=== PATIENT | female | born 1980 | race Caucasian/White ===

== ENCOUNTER 2019-04-20 06:58 | Day surgery (SDC) | payer BC ==
[~2019-04-20 06:58] MED LIST: Lidocaine 1%/Sod Bicarbonate in NS 8.4% 1 ML Syringe IDERM PRN; Sodium Chloride 0.9% 10 ML Syringe FLUSH PRN
[2019-04-20] MEDS ORDERED: fentaNYL 250 MCG/5 ML SDV ONE (07:12)
[2019-04-20] MEDS ORDERED: Propofol 200 MG/20 ML SDV ONE (07:12)
[2019-04-20] MEDS ORDERED: Ondansetron 4 MG/2 ML SDV ONE (07:12)
[2019-04-20] MEDS ORDERED: Lidocaine 1% 4 ML ONE ×2 (07:12→07:13)
[2019-04-20] MEDS ORDERED: Midazolam 1 MG/ML 2 ML SDV ONE (07:12)
[2019-04-20] MEDS ORDERED: ceFAZolin 1 GM Vial ONE (07:12)
[2019-04-20] MEDS ORDERED: Lactated Ringers 1,000 ML ONE (07:12)
[2019-04-20] MEDS ORDERED: Ketorolac 30 MG/ML SDV ONE (07:13)
[2019-04-20] MEDS ORDERED: Rocuronium 100 MG/10 ML MDV ONE (07:13)
[2019-04-20] MEDS ORDERED: Dexamethasone 4 MG/ML 5 ML MDV ONE (07:13)
[2019-04-20] MEDS: Lactated Ringers 1,000 ML IV SCH ×3 (07:27→13:57)
[2019-04-20] MEDS ORDERED: Sodium Chloride 0.9% 50 ML SDV ONE (07:28)
[2019-04-20] MEDS ORDERED: Lidocaine 1% with EPINEPHrine 1:100,000 20 ML MDV ONE (07:28)
[2019-04-20] MEDS ORDERED: Bupivacaine 0.5% 30 ML SDV ONE (07:28)
[2019-04-20] MEDS ORDERED: fentaNYL 100 MCG/2 ML SDV IVPUSH PRN (08:53)
[2019-04-20] MEDS ORDERED: Ondansetron 4 MG/2 ML SDV IVPUSH PRN (08:53)
[2019-04-20] MEDS ORDERED: HYDROmorphone 0.5 MG/0.5 ML Syringe IVPUSH PRN (08:53)
--- NOTE | 2019-04-20 08:53 | PCM.PREANE ---
Preanesthetic Assessment - Procedure Proposed Procedure: Laparoscopic Assisted Vaginal Hysterectomy - Anesthesia/Transfusion/Family Hx Anesthesia History: Prior Anesthesia Without Reaction Family History of Anesthesia Reaction: No - Review of Systems General: No Symptoms Pulmonary: No Symptoms Cardiovascular: No Symptoms Gastrointestinal: No Symptoms Neurological: No Symptoms Other: Reports: Anxiety - Physical Assessment NPO Status Date: 04/19/19 NPO Status Time: 19:00 Vital Signs: Last Vital Signs Temp 37.2 C 04/20/19 07:15 Pulse 71 04/20/19 07:15 Resp 16 04/20/19 07:15 BP 100/61 04/20/19 07:15 Pulse Ox 99 04/20/19 07:15 Height: 1.75 m Weight: 57.606 kg ASA Class: 1 Mental Status: Alert & Oriented x3 Airway Class: Mallampati = 1 Dentition: Reports: Normal Dentition (Small chipped/uneven surface noted to both front incisors. ) Thyro-Mental Finger Breadths: 3 Mouth Opening Finger Breadths: 3 ROM/Head Extension: Full Lungs: Clear to Auscultation, Normal Respiratory Effort Cardiovascular: Regular Rate, Regular Rhythm - Lab Values: Laboratory Last Values Urine Color Yellow (Yellow) 04/20/19 07:08 Urine Appearance Slt cloudy (Clear) H 04/20/19 07:08 Urine pH 7.0 (5.0-8.0) 04/20/19 07:08 Ur Specific [employer] 1.025 (1.005-1.030) 04/20/19 07:08 Urine Protein Negative (Negative) 04/20/19 07:08 Urine Glucose (UA) Negative (Negative) 04/20/19 07:08 Urine Ketones Negative (Negative) 04/20/19 07:08 Urine Occult Blood Negative (Negative) 04/20/19 07:08 Urine Nitrite Negative (Negative) 04/20/19 07:08 Urine Bilirubin Negative (Negative) 04/20/19 07:08 Urine Urobilinogen 1.0 (0.2-1.0) 04/20/19 07:08 Ur Leukocyte Esterase Trace (Negative) H 04/20/19 07:08 Urine RBC 0-5 /hpf (0-5) 04/20/19 07:08 Urine WBC 5-10 /hpf (0-5) H 04/20/19 07:08 Ur Squamous Epith Cells 5-10 /hpf (0-5) H 04/20/19 07:08 Urine Bacteria Moderate /hpf (FEW) H 04/20/19 07:08 Hyaline Casts 0-5 /lpf (0-5) 04/20/19 07:08 Urine Mucus Moderate /hpf (FEW) H 04/20/19 07:08 Urine HCG, Qual Negative (NEGATIVE) 04/20/19 07:08 - Allergies Allergies/Adverse Reactions: Allergies Allergy/AdvReac Type Severity Reaction Status Date / Time No Known Allergies Allergy Verified 04/20/19 07:49 - Anesthesia Plan Pre-Op Medication Ordered: Anxiolytic - Acknowledgements Anesthesia Type Planned: General Anesthesia Pt an Appropriate Candidate for the Planned Anesthesia: Yes Alternatives and Risks of Anesthesia Discussed w Pt/Guardian: Yes Pt/Guardian Understands and Agrees with Anesthesia Plan: Yes PreAnesthesia Questionnaire - Past Health History Medical/Surgical History: Denies Medical/Surgical History HEENT History: Reports: Impaired Vision Cardiovascular History: Reports: None Respiratory History: Reports: None Gastrointestinal History: Reports: None Genitourinary History: Reports: Other (See Below) Other Genitourinary History: urinary frequency 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: , Other (See Below) Other OB/BYN History: essure coils, irregular menses, pelvic pain, dyspareunia Musculoskeletal History: Reports: None Neurological History: Reports: None Psychiatric History: Reports: Anxiety Endocrine/Metabolic History: Reports: None Hematologic History: Reports: None Immunologic History: Reports: None Oncologic (Cancer) History: Reports: None Dermatologic History: Reports: Other (See Below) Other Dermatologic History: dermoid cyst, cystic acne - Past Surgical History Head Surgeries/Procedures: Reports: None HEENT Surgical History: Reports: None Cardiovascular Surgical History: Reports: None Respiratory Surgical History: Reports: None GI Surgical History: Reports: None Female Surgical History: Reports: Breast Implant Male Surgical History: Reports: None Endocrine Surgical History: Reports: None Neurological Surgical History: Reports: None Musculoskeletal Surgical History: Reports: None Oncologic Surgical History: Reports: None - SUBSTANCE USE Smoking Status *Q: Never Smoker Recreational Drug Use History: No - HOME MEDS Home Medications: Home Meds Escitalopram [Lexapro] 20 mg PO BEDTIME 04/19/19 [History] Spironolactone 50 mg PO BID 04/19/19 [History] - CURRENT (IN HOUSE) MEDS Current Meds: Current Medications Lactated Ringer's (Ringers, Lactated) 1,000 mls @ 125 mls/hr IV ASDIRECTED DIAN Stop: 04/20/19 23:00 Last Admin: 04/20/19 07:27 Dose: 125 mls/hr Lidocaine/Sodium Bicarbonate (Buffered Lidocaine 1% In Ns 8.4%) 0.25 ml IDERM ONETIME PRN PRN Reason: Prior to IV Start Stop: 04/20/19 18:00 Last Admin: 04/20/19 07:27 Dose: 0.25 ml Sodium Chloride (Saline Flush) 10 ml FLUSH ASDIRECTED PRN PRN Reason: Keep Vein Open Stop: 04/20/19 18:00 Discontinued Medications Bupivacaine HCl (Marcaine 0.5%) Confirm Administered Dose 30 ml .ROUTE .STK-MED ONE Stop: 04/20/19 07:29 Cefazolin Sodium (Ancef) Confirm Administered Dose 2 gm .ROUTE .STK-MED ONE Stop: 04/20/19 07:13 Dexamethasone (Dexamethasone) Confirm Administered Dose 20 mg .ROUTE .STK-MED ONE Stop: 04/20/19 07:14 Fentanyl (Sublimaze) Confirm Administered Dose 250 mcg .ROUTE .STK-MED ONE Stop: 04/20/19 07:13 Glycopyrrolate () Confirm Administered Dose 1 mg .ROUTE .STK-MED ONE Stop: 04/20/19 08:35 Lidocaine HCl (Xylocaine-Mpf 1%) Confirm Administered Dose 4 mls @ as directed .ROUTE .STK-MED ONE Stop: 04/20/19 07:13 Lactated Ringer's (Ringers, Lactated) Confirm Administered Dose 1,000 mls @ as directed .ROUTE .STK-MED ONE Stop: 04/20/19 07:13 Lidocaine HCl (Xylocaine-Mpf 1%) Confirm Administered Dose 4 mls @ as directed .ROUTE .STK-MED ONE Stop: 04/20/19 07:14 Ketorolac Tromethamine (Toradol) Confirm Administered Dose 30 mg .ROUTE .STK- MED ONE Stop: 04/20/19 07:14 Lidocaine/Epinephrine (Xylocaine 1% With Epinephrine 1:100,000) Confirm Administered Dose 20 ml .ROUTE .STK-MED ONE Stop: 04/20/19 07:29 Midazolam HCl (Versed 1 Mg/Ml) Confirm Administered Dose 2 mg .ROUTE .STK-MED ONE Stop: 04/20/19 07:13 Ondansetron HCl (Zofran) Confirm Administered Dose 4 mg .ROUTE .STK-MED ONE Stop: 04/20/19 07:13 Propofol (Diprivan 20 Ml) Confirm Administered Dose 400 mg .ROUTE .STK-MED ONE Stop: 04/20/19 07:13 Rocuronium [place] (Zemuron) Confirm Administered Dose 100 mg .ROUTE .STK-MED ONE Stop: 04/20/19 07:14 Sodium Chloride (Normal Saline) Confirm Administered Dose 50 ml .ROUTE .STK-MED ONE Stop: 04/20/19 07:29
--- NOTE | 2019-04-20 10:03 | PCM.POSTAN ---
POST ANESTHESIA ASSESSMENT - MENTAL STATUS Mental Status: Alert, Oriented - VITAL SIGNS Vital Signs: Last Vital Signs Temp 37.2 C 04/20/19 07:15 Pulse 71 04/20/19 07:15 Resp 16 04/20/19 07:15 BP 100/61 04/20/19 07:15 Pulse Ox 99 04/20/19 07:15 - RESPIRATORY Respiratory Status: Respiratory Rate WNL, Airway Patent, O2 Saturation Stable, Supplemental Oxygen - CARDIOVASCULAR CV Status: Pulse Rate WNL, Blood Pressure Stable - GASTROINTESTINAL GI Status: No Symptoms - PAIN Pain Score: 0 - POST OP HYDRATION Hydration Status: Adequate & Stable
--- NOTE | 2019-04-20 10:07 | PCM.OPNOTE ---
- General Post-Op/Procedure Note Date of Surgery/Procedure: 04/20/19 Operative Procedure(s): Laparoscopic-assisted vaginal hysterectomy with transvaginal tape mid urethral sling and cystoscopy Findings: Grossly normal-appearing uterus with surgically resected fallopian tubes bilaterally. Grossly normal-appearing ovaries bilaterally. Unable to visualize the appendix due to location. Grossly normal-appearing visualized portions of the intestines. Liver with small cyst on left lobe inferior edge measuring approximately 0.5 cm. Pre Op Diagnosis: Abnormal uterine bleeding with menorrhagia with irregular cycle, dysmenorrhea and stress urinary incontinence Post-Op Diagnosis: Same Anesthesia Technique: General ET Tube Primary Surgeon: Geovanny Clements Anesthesia Provider: Susana Forrest Petroleum Supply Specialist: [place] Petroleum Supply Specialist: Huong Matias ([place] student) Reason Petroleum Supply Specialist Was Necessary: Patient safety and reduction of morbidity and mortality Role of Petroleum Supply Specialist: Use of laparoscopic instruments for the laparoscopic portion of the case and retraction for visualization Pathology: Uterus and cervix Fluid Replacement, Intraop: 1,700 Output, Urine Amount: 50 EBL in mLs: 25 Complications: None Condition: Good Free Text/Narrative:: The patient was seen in the preoperative holding area and risks, benefits, indications, and alternatives of the procedure were reviewed with the patient and she desired to proceed with a laparoscopic assisted vaginal hysterectomy, bilateral salpingectomy, possible unilateral or bilateral salpingo-oophorectomy , transvaginal mid-urethral sling, possible anterior and posterior repair and possible total abdominal hysterectomy. Consents were reviewed. The patient was taken back to the OR and given general anesthesia with an endotracheal tube which was placed without difficulty. She was placed in dorsal lithotomy position using Yellofin stirrups. She was prepped and draped in normal sterile fashion. A Bond catheter was placed without difficulty. Attention was then turned to her umbilicus where a previous laparoscopic scar was visualized. This was injected with 0.5% Marcaine and a 5 mm stab incision was made with a scalpel and a Veress needle was then inserted through the incision. The gas was turned on, with an opening pressure of 2 mmHg. Pneumoperitoneum was continued until 15 mmHg pressure. A 5 mm trocar was then inserted under direct visualization through the incision without difficulty. Attention was then turned to the patient's right lower quadrant where an avascular space approximately fdc between the ASIS and the umbilicus was identified. Local anesthetic was injected and a 5 mm incision was made with a scalpel. A 5 mm trocar was then inserted under direct visualization of the laparoscope. Attention was then turned to the left lower quadrant, where again an avascular portion of the abdominal wall was identified approximately fdc between the ASIS and the umbilicus. Local anesthetic was injected and a scalpel was used to make a 5 mm incision. A 5 mm trocar was inserted under direct visualization with the laparoscope. Attention was then turned to the pelvis where the uterus was visualized and noted be normal in appearance with surgically absent bilateral fallopian tubes and normal-appearing bilateral ovaries. The atraumatic grasper was then removed from the right lower trocar and a Enseal vessel sealing device was introduced and was used to transect the right round ligament. The utero-ovarian ligament was then transected using the Enseal vessel sealing device. The right side of the uterus and broad ligament were then transected using the Enseal vessel sealing device until the level of the uterovesical peritoneal reflection. A bladder flap was created using the Enseal vessel sealing device. This was repeated on the patient's left side. The left round ligament and utero ovarian ligament was transected using Enseal vessel sealing device and the broad ligament was transected to the level of the uterovesical peritoneal reflection. The pelvis was then inspected for hemostasis at this time and hemostasis was noted. All instruments were removed from the abdomen. Attention was then turned to the patient's perineum where a weighted speculum was placed into the vagina and a Samia retractor was used to visualize the cervix. The cervix was grasped with a double-tooth tenaculum. The cervical reflection point was then injected circumferentially with 0.25% lidocaine with epinephrine. The cervix was then circumferentially incised with a scalpel. The bladder was then dissected off the pubovesical cervical fascia anteriorly with Metzenbaum scissors and the anterior cul-de-sac was entered sharply. The same procedure was performed posteriorly and the posterior cul-de-sac was entered sharply without difficulty using Metzenbaum scissors. At this point, an Enseal vessel sealing device was placed over the uterosacral ligaments on the patient' s left side. These were cauterized and ligated with the device. This was repeated on the patient's right side. Hemostasis was assured. The cardinal ligaments were then clamped on both sides using the Enseal vessel sealing device , cauterized and transected with the device. The uterine artery on the patient' s right side side and the remainder of the broad ligament were then serially clamped with the Enseal vessel sealing device, cauterized and transected with the device. Excellent hemostasis was noted. The cervix and uterus was able to be delivered at this time. The posterior vaginal cuff was closed with running locked sutures of 0 Monocryl. The vaginal cuff was then closed in a horizontal fashion using running locked sutures with 0 Monocryl suture. All instruments were removed from the vagina. Attention was then turned to the abdomen where a laparoscope was inserted and was used to check for hemostasis. Hemostasis was noted at this time. The gas was then evacuated from the peritoneum and trocars removed. These were closed using 4-0 Monocryl suture and Dermabond. Attention was then turned to the pelvis for the mid urethral sling portion of the case. An Allis clamp was placed approximately 2 cm below the urethral opening. A second Allis clamp was placed 2 cm below the first Allis clamp. The vaginal mucosa was then injected with 0.25% lidocaine with epinephrine. A scalpel was used to make a midline incision through the vaginal mucosa. Rosado scissors were used to dissect the vaginal mucosa from the underlying tissue on the patient's right side. This was carried out to the pubic rami. This was repeated on the left side and completed without difficulty. Attention was then turned to the patient's mons and the skin was injected with 0.25% lidocaine with epinephrine in the bilateral sides approximately 2 cm from midline. A stab incision was made with a scalpel on the bilateral sides without complications. The urethral sling hook was then used on the patient's left side and placed through the stab incision and with a finger in the vagina behind the pubic rami, the tip of the hook was felt and then directed out through the midline vaginal incision. The transvaginal tape was attached to the hook and pulled through the incision. Attention was then turned to the patient's right side where, again, the urethral sling hook was placed through the stab incision and with a finger in the vagina was directed posterior to the lateral pubic rami and directed through the vaginal incision. The other end of the tape was attached to the hook and pulled through, making sure that the tape was flat under the patient's urethra. The bladder was then filled with 240 mL of sterile saline through the previously inserted urethral catheter. The urethral catheter was removed at this time. A simple cystoscopy was performed and evaluation of the bilateral bladder [place] did not show any evidence of injury. There was bilateral ureteral jetting noted with cystoscopy after administration of 10 mg of Lasix IV by anesthesia. The cystoscopy portion of the procedure was completed at this time. A Rosado scissors was used between the urethral sling and urethra to allow for a tension-free placement of the tape. The ends of the tape were then cut at the level of the skin on the patient on both sides at the stab incisions. Attention was then turned to the midline incision, which was closed using 3-0 Monocryl in a running fashion. The skin incisions were closed using Dermabond glue. The patient was awoken from general anesthesia and taken to the PACU for recovery in stable condition. She will be discharged to home once she is able to meet all postoperative milestones including tolerating small amount of oral intake and liquids, ambulate without difficulty, her pain controlled with oral medications and able to void without difficulty. She will follow-up in the clinic in 2 weeks or earlier as needed. Sponge, lap, needle, and instrument counts were correct x 2. Review of images from case IMG 001: Visualized portion of the uterus grossly normal in appearance with surgically absent right fallopian tube IMG 002: Right ovary grossly normal in appearance IMG 003: Left round ligament and surgically absent portion of the left lobe in 2. Left ovary grossly normal in appearance. IMG 004: Right lobe of the liver grossly normal in appearance IMG 005: Left lobe of the liver with small cystic structure noted at the inferior edge IMG 006: Close-up image of the liver cystic structure on the inferior edge of left lobe of liver IMG 007: Right pelvic sidewall and ovary after hysterectomy grossly normal in appearance with hemostasis noted IMG 008: Vaginal cuff after hysterectomy grossly normal in appearance. IMG 009: Left pelvic sidewall with hemostasis noted status post hysterectomy and grossly normal-appearing ovary text
[2019-04-20] MEDS ORDERED: Acetaminophen/oxyCODONE 325-5 MG Tab PO PRN ×2 (12:05→15:39)
[2019-04-20] MEDS ORDERED: Ondansetron 4 MG Tab.DIS PO PRN (16:56)
[2019-04-20] MEDS: Ibuprofen 600 MG Tab PO PRN (18:11)
[2019-04-20] MEDS: Acetaminophen/oxyCODONE 325-5 MG Tab PO PRN (20:14)
[2019-04-20] MEDS: Spironolactone 25 MG Tab PO SCH (21:24)
[2019-04-21] MEDS: Ibuprofen 600 MG Tab PO PRN ×2 (00:33→08:35)
[2019-04-21] MEDS: Acetaminophen/oxyCODONE 325-5 MG Tab PO PRN (04:23)
--- NOTE | 2019-04-21 08:04 | PCM.SN ---
- Free Text/Narrative Note: Post Op Note Subjective: Patient reports feeling well overall. Pain minimal and controlled with oral medications. Tolerating regular diet. Reports not passing flatus at this time. Voiding without difficulty after removal of her Bond catheter. Ambulating without difficulty. Objective: Vitals Vital Signs - 24 hr 04/20/19 04/20/19 04/20/19 09:56 10:10 10:20 Temperature Temperature [ 36.9 C Temporal] Pulse, Peripheral Pulse, Peripheral [ Left Pulse Oximetry] Respiratory 10 L 12 11 L Rate Blood Pressure Blood Pressure 91/50 L 86/59 L 97/64 [Right Upper Arm] O2 Sat by Pulse 100 100 100 Oximetry O2 Sat by Pulse 100 Oximetry [ Nasal Cannula] 04/20/19 04/20/19 04/20/19 10:30 10:38 10:42 Temperature Temperature [ Temporal] Pulse, Peripheral Pulse, Peripheral [ Left Pulse Oximetry] Respiratory 16 Rate Blood Pressure Blood Pressure 92/72 [Right Upper Arm] O2 Sat by Pulse 100 Oximetry O2 Sat by Pulse 100 100 Oximetry [ Nasal Cannula] 04/20/19 04/20/19 04/20/19 10:45 10:55 11:00 Temperature Temperature [ 37.2 C 37.1 C Temporal] Pulse, Peripheral Pulse, 56 L Peripheral [ Left Pulse Oximetry] Respiratory 14 16 10 L Rate Blood Pressure Blood Pressure 92/63 92/56 L 89/59 L [Right Upper Arm] O2 Sat by Pulse 100 99 100 Oximetry O2 Sat by Pulse Oximetry [ Nasal Cannula] 04/20/19 04/20/19 04/20/19 11:30 12:12 12:30 Temperature Temperature [ Temporal] Pulse, Peripheral Pulse, 53 L 67 62 Peripheral [ Left Pulse Oximetry] Respiratory 14 16 16 Rate Blood Pressure Blood Pressure 91/56 L 97/61 97/61 [Right Upper Arm] O2 Sat by Pulse 100 99 99 Oximetry O2 Sat by Pulse Oximetry [ Nasal Cannula] 04/20/19 04/20/19 04/20/19 13:05 13:30 14:30 Temperature Temperature [ 36.9 C Temporal] Pulse, Peripheral Pulse, 56 L 60 62 Peripheral [ Left Pulse Oximetry] Respiratory 16 16 16 Rate Blood Pressure Blood Pressure 91/70 98/63 98/55 L [Right Upper Arm] O2 Sat by Pulse 98 98 96 Oximetry O2 Sat by Pulse Oximetry [ Nasal Cannula] 04/20/19 04/20/19 04/20/19 14:55 16:00 20:13 Temperature 37.3 C 37.2 C Temperature [ 37.1 C Temporal] Pulse, 64 61 Peripheral Pulse, Peripheral [ Left Pulse Oximetry] Respiratory 14 14 16 Rate Blood Pressure 99/56 L 102/51 L Blood Pressure 106/78 [Right Upper Arm] O2 Sat by Pulse 99 97 98 Oximetry O2 Sat by Pulse Oximetry [ Nasal Cannula] 04/21/19 04/21/19 00:34 04:25 Temperature 36.8 C Temperature [ Temporal] Pulse, 74 76 Peripheral Pulse, Peripheral [ Left Pulse Oximetry] Respiratory 15 15 Rate Blood Pressure 98/55 L 96/66 Blood Pressure [Right Upper Arm] O2 Sat by Pulse 98 93 L Oximetry O2 Sat by Pulse Oximetry [ Nasal Cannula] Gen: No acute distress, alert and oriented Lungs: Clear to auscultation bilaterally Heart: Regular rate and rhythm Abdomen: Soft, minimal appropriate tenderness, nondistended, bowel sounds positive Incisions: Healing well, no bleeding or discharge, no erythema present, skin glue covering incisions Pelvic: Minimal bleeding present on jen-pad Bladder scan post void residual: 18 mL after voiding 400 mL of urine Assesment/Plan: 38-year-old with dysmenorrhea, abnormal uterine bleeding, menorrhagia with irregular cycle and stress urinary incontinence status post laparoscopic- assisted vaginal hysterectomy, transvaginal tape mid urethral sling and cystoscopy POD #1 Doing well No concerns at this time No evidence of urinary retention this morning with minimal post void residual after normal urination. Patient to be continued on Urecholine 10 mg every 6 hours for 5 days. Patient to use Colace and other stool softeners for constipation. Discussed other regimens with patient including milk of magnesia, MiraLAX or magnesium citrate to help with having bowel movement if she does not have a normal bowel movement within the next 24 to 48 hours. Routine post op care Monitor vitals Discharge home today Geovanny Clements MD 8:03 AM 04/21/2019
[2019-04-21 08:09] VITALS: BP 96/53; PULSE 60
--- NOTE | 2019-04-21 08:10 | PCM.DCSUM1 ---
Discharge Summary - Hospital Course Free Text/Narrative:: The patient was seen in the preoperative holding area and risks, benefits, indications, and alternatives of the procedure were reviewed with the patient and she desired to proceed with a laparoscopic assisted vaginal hysterectomy, bilateral salpingectomy, possible unilateral or bilateral salpingo-oophorectomy , transvaginal mid-urethral sling, possible anterior and posterior repair and possible total abdominal hysterectomy. Consents were reviewed. The patient was taken back to the OR and given general anesthesia with an endotracheal tube which was placed without difficulty. She was placed in dorsal lithotomy position using Yellofin stirrups. She was prepped and draped in normal sterile fashion. A Bond catheter was placed without difficulty. Attention was then turned to her umbilicus where a previous laparoscopic scar was visualized. This was injected with 0.5% Marcaine and a 5 mm stab incision was made with a scalpel and a Veress needle was then inserted through the incision. The gas was turned on, with an opening pressure of 2 mmHg. Pneumoperitoneum was continued until 15 mmHg pressure. A 5 mm trocar was then inserted under direct visualization through the incision without difficulty. Attention was then turned to the patient's right lower quadrant where an avascular space approximately shelter between the ASIS and the umbilicus was identified. Local anesthetic was injected and a 5 mm incision was made with a scalpel. A 5 mm trocar was then inserted under direct visualization of the laparoscope. Attention was then turned to the left lower quadrant, where again an avascular portion of the abdominal wall was identified approximately shelter between the ASIS and the umbilicus. Local anesthetic was injected and a scalpel was used to make a 5 mm incision. A 5 mm trocar was inserted under direct visualization with the laparoscope. Attention was then turned to the pelvis where the uterus was visualized and noted be normal in appearance with surgically absent bilateral fallopian tubes and normal-appearing bilateral ovaries. The atraumatic grasper was then removed from the right lower trocar and a Enseal vessel sealing device was introduced and was used to transect the right round ligament. The utero-ovarian ligament was then transected using the Enseal vessel sealing device. The right side of the uterus and broad ligament were then transected using the Enseal vessel sealing device until the level of the uterovesical peritoneal reflection. A bladder flap was created using the Enseal vessel sealing device. This was repeated on the patient's left side. The left round ligament and utero ovarian ligament was transected using Enseal vessel sealing device and the broad ligament was transected to the level of the uterovesical peritoneal reflection. The pelvis was then inspected for hemostasis at this time and hemostasis was noted. All instruments were removed from the abdomen. Attention was then turned to the patient's perineum where a weighted speculum was placed into the vagina and a Samia retractor was used to visualize the cervix. The cervix was grasped with a double-tooth tenaculum. The cervical reflection point was then injected circumferentially with 0.25% lidocaine with epinephrine. The cervix was then circumferentially incised with a scalpel. The bladder was then dissected off the pubovesical cervical fascia anteriorly with Metzenbaum scissors and the anterior cul-de-sac was entered sharply. The same procedure was performed posteriorly and the posterior cul-de-sac was entered sharply without difficulty using Metzenbaum scissors. At this point, an Enseal vessel sealing device was placed over the uterosacral ligaments on the patient' s left side. These were cauterized and ligated with the device. This was repeated on the patient's right side. Hemostasis was assured. The cardinal ligaments were then clamped on both sides using the Enseal vessel sealing device , cauterized and transected with the device. The uterine artery on the patient' s right side side and the remainder of the broad ligament were then serially clamped with the Enseal vessel sealing device, cauterized and transected with the device. Excellent hemostasis was noted. The cervix and uterus was able to be delivered at this time. The posterior vaginal cuff was closed with running locked sutures of 0 Monocryl. The vaginal cuff was then closed in a horizontal fashion using running locked sutures with 0 Monocryl suture. All instruments were removed from the vagina. Attention was then turned to the abdomen where a laparoscope was inserted and was used to check for hemostasis. Hemostasis was noted at this time. The gas was then evacuated from the peritoneum and trocars removed. These were closed using 4-0 Monocryl suture and Dermabond. Attention was then turned to the pelvis for the mid urethral sling portion of the case. An Allis clamp was placed approximately 2 cm below the urethral opening. A second Allis clamp was placed 2 cm below the first Allis clamp. The vaginal mucosa was then injected with 0.25% lidocaine with epinephrine. A scalpel was used to make a midline incision through the vaginal mucosa. Rosado scissors were used to dissect the vaginal mucosa from the underlying tissue on the patient's right side. This was carried out to the pubic rami. This was repeated on the left side and completed without difficulty. Attention was then turned to the patient's mons and the skin was injected with 0.25% lidocaine with epinephrine in the bilateral sides approximately 2 cm from midline. A stab incision was made with a scalpel on the bilateral sides without complications. The urethral sling hook was then used on the patient's left side and placed through the stab incision and with a finger in the vagina behind the pubic rami, the tip of the hook was felt and then directed out through the midline vaginal incision. The transvaginal tape was attached to the hook and pulled through the incision. Attention was then turned to the patient's right side where, again, the urethral sling hook was placed through the stab incision and with a finger in the vagina was directed posterior to the lateral pubic rami and directed through the vaginal incision. The other end of the tape was attached to the hook and pulled through, making sure that the tape was flat under the patient's urethra. The bladder was then filled with 240 mL of sterile saline through the previously inserted urethral catheter. The urethral catheter was removed at this time. A simple cystoscopy was performed and evaluation of the bilateral bladder clayton did not show any evidence of injury. There was bilateral ureteral jetting noted with cystoscopy after administration of 10 mg of Lasix IV by anesthesia. The cystoscopy portion of the procedure was completed at this time. A Rosado scissors was used between the urethral sling and urethra to allow for a tension-free placement of the tape. The ends of the tape were then cut at the level of the skin on the patient on both sides at the stab incisions. Attention was then turned to the midline incision, which was closed using 3-0 Monocryl in a running fashion. The skin incisions were closed using Dermabond glue. The patient was awoken from general anesthesia and taken to the PACU for recovery in stable condition. She will be discharged to home once she is able to meet all postoperative milestones including tolerating small amount of oral intake and liquids, ambulate without difficulty, her pain controlled with oral medications and able to void without difficulty. She will follow-up in the clinic in 2 weeks or earlier as needed. Sponge, lap, needle, and instrument counts were correct x 2. HPI Initial Comments: The patient was seen in the preoperative holding area and risks, benefits, indications, and alternatives of the procedure were reviewed with the patient and she desired to proceed with a laparoscopic assisted vaginal hysterectomy, bilateral salpingectomy, possible unilateral or bilateral salpingo-oophorectomy , transvaginal mid-urethral sling, possible anterior and posterior repair and possible total abdominal hysterectomy. Consents were reviewed. The patient was taken back to the OR and given general anesthesia with an endotracheal tube which was placed without difficulty. She was placed in dorsal lithotomy position using Yellofin stirrups. She was prepped and draped in normal sterile fashion. A Bond catheter was placed without difficulty. Attention was then turned to her umbilicus where a previous laparoscopic scar was visualized. This was injected with 0.5% Marcaine and a 5 mm stab incision was made with a scalpel and a Veress needle was then inserted through the incision. The gas was turned on, with an opening pressure of 2 mmHg. Pneumoperitoneum was continued until 15 mmHg pressure. A 5 mm trocar was then inserted under direct visualization through the incision without difficulty. Attention was then turned to the patient's right lower quadrant where an avascular space approximately shelter between the ASIS and the umbilicus was identified. Local anesthetic was injected and a 5 mm incision was made with a scalpel. A 5 mm trocar was then inserted under direct visualization of the laparoscope. Attention was then turned to the left lower quadrant, where again an avascular portion of the abdominal wall was identified approximately shelter between the ASIS and the umbilicus. Local anesthetic was injected and a scalpel was used to make a 5 mm incision. A 5 mm trocar was inserted under direct visualization with the laparoscope. Attention was then turned to the pelvis where the uterus was visualized and noted be normal in appearance with surgically absent bilateral fallopian tubes and normal-appearing bilateral ovaries. The atraumatic grasper was then removed from the right lower trocar and a Enseal vessel sealing device was introduced and was used to transect the right round ligament. The utero-ovarian ligament was then transected using the Enseal vessel sealing device. The right side of the uterus and broad ligament were then transected using the Enseal vessel sealing device until the level of the uterovesical peritoneal reflection. A bladder flap was created using the Enseal vessel sealing device. This was repeated on the patient's left side. The left round ligament and utero ovarian ligament was transected using Enseal vessel sealing device and the broad ligament was transected to the level of the uterovesical peritoneal reflection. The pelvis was then inspected for hemostasis at this time and hemostasis was noted. All instruments were removed from the abdomen. Attention was then turned to the patient's perineum where a weighted speculum was placed into the vagina and a [place] retractor was used to visualize the cervix. The cervix was grasped with a double-tooth tenaculum. The cervical reflection point was then injected circumferentially with 0.25% lidocaine with epinephrine. The cervix was then circumferentially incised with a scalpel. The bladder was then dissected off the pubovesical cervical fascia anteriorly with Metzenbaum scissors and the anterior cul-de-sac was entered sharply. The same procedure was performed posteriorly and the posterior cul-de-sac was entered sharply without difficulty using Metzenbaum scissors. At this point, an Enseal vessel sealing device was placed over the uterosacral ligaments on the patient' s left side. These were cauterized and ligated with the device. This was repeated on the patient's right side. Hemostasis was assured. The cardinal ligaments were then clamped on both sides using the Enseal vessel sealing device , cauterized and transected with the device. The uterine artery on the patient' s right side side and the remainder of the broad ligament were then serially clamped with the Enseal vessel sealing device, cauterized and transected with the device. Excellent hemostasis was noted. The cervix and uterus was able to be delivered at this time. The posterior vaginal cuff was closed with running locked sutures of 0 Monocryl. The vaginal cuff was then closed in a horizontal fashion using running locked sutures with 0 Monocryl suture. All instruments were removed from the vagina. Attention was then turned to the abdomen where a laparoscope was inserted and was used to check for hemostasis. Hemostasis was noted at this time. The gas was then evacuated from the peritoneum and trocars removed. These were closed using 4-0 Monocryl suture and Dermabond. Attention was then turned to the pelvis for the mid urethral sling portion of the case. An Allis clamp was placed approximately 2 cm below the urethral opening. A second Allis clamp was placed 2 cm below the first Allis clamp. The vaginal mucosa was then injected with 0.25% lidocaine with epinephrine. A scalpel was used to make a midline incision through the vaginal mucosa. Rosado scissors were used to dissect the vaginal mucosa from the underlying tissue on the patient's right side. This was carried out to the pubic rami. This was repeated on the left side and completed without difficulty. Attention was then turned to the patient's mons and the skin was injected with 0.25% lidocaine with epinephrine in the bilateral sides approximately 2 cm from midline. A stab incision was made with a scalpel on the bilateral sides without complications. The urethral sling hook was then used on the patient's left side and placed through the stab incision and with a finger in the vagina behind the pubic rami, the tip of the hook was felt and then directed out through the midline vaginal incision. The transvaginal tape was attached to the hook and pulled through the incision. Attention was then turned to the patient's right side where, again, the urethral sling hook was placed through the stab incision and with a finger in the vagina was directed posterior to the lateral pubic rami and directed through the vaginal incision. The other end of the tape was attached to the hook and pulled through, making sure that the tape was flat under the patient's urethra. The bladder was then filled with 240 mL of sterile saline through the previously inserted urethral catheter. The urethral catheter was removed at this time. A simple cystoscopy was performed and evaluation of the bilateral bladder clayton did not show any evidence of injury. There was bilateral ureteral jetting noted with cystoscopy after administration of 10 mg of Lasix IV by anesthesia. The cystoscopy portion of the procedure was completed at this time. A Rosado scissors was used between the urethral sling and urethra to allow for a tension-free placement of the tape. The ends of the tape were then cut at the level of the skin on the patient on both sides at the stab incisions. Attention was then turned to the midline incision, which was closed using 3-0 Monocryl in a running fashion. The skin incisions were closed using Dermabond glue. The patient was awoken from general anesthesia and taken to the PACU for recovery in stable condition. She will be discharged to home once she is able to meet all postoperative milestones including tolerating small amount of oral intake and liquids, ambulate without difficulty, her pain controlled with oral medications and able to void without difficulty. She will follow-up in the clinic in 2 weeks or earlier as needed. Sponge, lap, needle, and instrument counts were correct x 2. Brief History: The patient was seen in the preoperative holding area and risks, benefits, indications, and alternatives of the procedure were reviewed with the patient and she desired to proceed with a laparoscopic assisted vaginal hysterectomy, bilateral salpingectomy, possible unilateral or bilateral salpingo -oophorectomy, transvaginal mid-urethral sling, possible anterior and posterior repair and possible total abdominal hysterectomy. Consents were reviewed. The patient was taken back to the OR and given general anesthesia with an endotracheal tube which was placed without difficulty. She was placed in dorsal lithotomy position using Yellofin stirrups. She was prepped and draped in normal sterile fashion. A Bond catheter was placed without difficulty. Attention was then turned to her umbilicus where a previous laparoscopic scar was visualized. This was injected with 0.5% Marcaine and a 5 mm stab incision was made with a scalpel and a Veress needle was then inserted through the incision. The gas was turned on, with an opening pressure of 2 mmHg. Pneumoperitoneum was continued until 15 mmHg pressure. A 5 mm trocar was then inserted under direct visualization through the incision without difficulty. Attention was then turned to the patient's right lower quadrant where an avascular space approximately shelter between the ASIS and the umbilicus was identified. Local anesthetic was injected and a 5 mm incision was made with a scalpel. A 5 mm trocar was then inserted under direct visualization of the laparoscope. Attention was then turned to the left lower quadrant, where again an avascular portion of the abdominal wall was identified approximately shelter between the ASIS and the umbilicus. Local anesthetic was injected and a scalpel was used to make a 5 mm incision. A 5 mm trocar was inserted under direct visualization with the laparoscope. Attention was then turned to the pelvis where the uterus was visualized and noted be normal in appearance with surgically absent bilateral fallopian tubes and normal-appearing bilateral ovaries. The atraumatic grasper was then removed from the right lower trocar and a Enseal vessel sealing device was introduced and was used to transect the right round ligament. The utero-ovarian ligament was then transected using the Enseal vessel sealing device. The right side of the uterus and broad ligament were then transected using the Enseal vessel sealing device until the level of the uterovesical peritoneal reflection. A bladder flap was created using the Enseal vessel sealing device. This was repeated on the patient's left side. The left round ligament and utero ovarian ligament was transected using Enseal vessel sealing device and the broad ligament was transected to the level of the uterovesical peritoneal reflection. The pelvis was then inspected for hemostasis at this time and hemostasis was noted. All instruments were removed from the abdomen. Attention was then turned to the patient's perineum where a weighted speculum was placed into the vagina and a Samia retractor was used to visualize the cervix. The cervix was grasped with a double-tooth tenaculum. The cervical reflection point was then injected circumferentially with 0.25% lidocaine with epinephrine. The cervix was then circumferentially incised with a scalpel. The bladder was then dissected off the pubovesical cervical fascia anteriorly with Metzenbaum scissors and the anterior cul-de-sac was entered sharply. The same procedure was performed posteriorly and the posterior cul-de- sac was entered sharply without difficulty using Metzenbaum scissors. At this point, an Enseal vessel sealing device was placed over the uterosacral ligaments on the patient's left side. These were cauterized and ligated with the device. This was repeated on the patient's right side. Hemostasis was assured. The cardinal ligaments were then clamped on both sides using the Enseal vessel sealing device, cauterized and transected with the device. The uterine artery on the patient's right side side and the remainder of the broad ligament were then serially clamped with the Enseal vessel sealing device, cauterized and transected with the device. Excellent hemostasis was noted. The cervix and uterus was able to be delivered at this time. The posterior vaginal cuff was closed with running locked sutures of 0 Monocryl. The vaginal cuff was then closed in a horizontal fashion using running locked sutures with 0 Monocryl suture. All instruments were removed from the vagina. Attention was then turned to the abdomen where a laparoscope was inserted and was used to check for hemostasis. Hemostasis was noted at this time. The gas was then evacuated from the peritoneum and trocars removed. These were closed using 4-0 Monocryl suture and Dermabond. Attention was then turned to the pelvis for the mid urethral sling portion of the case. An Allis clamp was placed approximately 2 cm below the urethral opening. A second Allis clamp was placed 2 cm below the first Allis clamp. The vaginal mucosa was then injected with 0.25% lidocaine with epinephrine. A scalpel was used to make a midline incision through the vaginal mucosa. Rosado scissors were used to dissect the vaginal mucosa from the underlying tissue on the patient's right side. This was carried out to the pubic rami. This was repeated on the left side and completed without difficulty. Attention was then turned to the patient's mons and the skin was injected with 0.25% lidocaine with epinephrine in the bilateral sides approximately 2 cm from midline. A stab incision was made with a scalpel on the bilateral sides without complications. The urethral sling hook was then used on the patient's left side and placed through the stab incision and with a finger in the vagina behind the pubic rami, the tip of the hook was felt and then directed out through the midline vaginal incision. The transvaginal tape was attached to the hook and pulled through the incision. Attention was then turned to the patient's right side where, again, the urethral sling hook was placed through the stab incision and with a finger in the vagina was directed posterior to the lateral pubic rami and directed through the vaginal incision. The other end of the tape was attached to the hook and pulled through, making sure that the tape was flat under the patient's urethra. The bladder was then filled with 240 mL of sterile saline through the previously inserted urethral catheter. The urethral catheter was removed at this time. A simple cystoscopy was performed and evaluation of the bilateral bladder clayton did not show any evidence of injury. There was bilateral ureteral jetting noted with cystoscopy after administration of 10 mg of Lasix IV by anesthesia. The cystoscopy portion of the procedure was completed at this time. A Rosado scissors was used between the urethral sling and urethra to allow for a tension-free placement of the tape. The ends of the tape were then cut at the level of the skin on the patient on both sides at the stab incisions. Attention was then turned to the midline incision, which was closed using 3-0 Monocryl in a running fashion. The skin incisions were closed using Dermabond glue. The patient was awoken from general anesthesia and taken to the PACU for recovery in stable condition. She will be discharged to home once she is able to meet all postoperative milestones including tolerating small amount of oral intake and liquids, ambulate without difficulty, her pain controlled with oral medications and able to void without difficulty. She will follow-up in the clinic in 2 weeks or earlier as needed. Sponge, lap, needle, and instrument counts were correct x 2. Diagnosis: Stroke: No - Discharge Data Discharge Date: 04/21/19 Discharge Disposition: Home, Self-Care 01 Condition: Good - Referral to Home Health Primary Care Physician: Ashley Dasilva MD - Discharge Diagnosis/Problem(s) (1) Abnormal uterine bleeding SNOMED Code(s): 31456518730450 ICD Code: N93.9 - ABNORMAL UTERINE AND VAGINAL BLEEDING, UNSPECIFIED Status : Acute Current Visit: Yes (2) Menorrhagia with irregular cycle SNOMED Code(s): 748882414 ICD Code: N92.1 - EXCESSIVE AND FREQUENT MENSTRUATION WITH IRREGULAR CYCLE Status: Acute Current Visit: Yes (3) Dysmenorrhea SNOMED Code(s): 446839577 ICD Code: N94.6 - DYSMENORRHEA, UNSPECIFIED Status: Acute Current Visit: Yes (4) JIMMY (stress urinary incontinence, female) SNOMED Code(s): 79508653 ICD Code: N39.3 - STRESS INCONTINENCE (FEMALE) (MALE) Status: Acute Current Visit: Yes (5) S/P laparoscopic assisted vaginal hysterectomy (LAVH) SNOMED Code(s): 332579385, [id number], [id number] ICD Code: Z90.710 - ACQUIRED ABSENCE OF BOTH CERVIX AND UTERUS Status: Acute Current Visit: Yes (6) History of suburethral sling procedure SNOMED Code(s): 759886472 ICD Code: Z98.890 - OTHER SPECIFIED POSTPROCEDURAL STATES Status: Acute Current Visit: Yes - Patient Summary/Data Operative Procedure(s) Performed: Laparoscopic-assisted vaginal hysterectomy with transvaginal tape mid urethral sling and cystoscopy Complications: Urinary retention immediately postoperative and Bond catheter placed overnight. Patient able to urinate in morning after catheter removal. Consults: None Hospital Course: Christin Hathaway was admitted for laparoscopic-assisted vaginal hysterectomy, transvaginal tape mid urethral sling and cystoscopy. She was taken back to the OR and given general anesthesia with endotracheal tube with minimal difficulty. She was given Ancef 2 g IV for antibiotic prophylaxis. She was prepped and draped in the normal fashion. She underwent laparoscopic-assisted vaginal hysterectomy, transvaginal tape mid urethral sling and cystoscopy on 2018. There were no complications with the procedure. Please see the operative report for full details. Her post operative course was complicated by immediate postoperative urinary retention. She had a straight catheterization of the bladder with return of 800 cc of urine and sterile saline that was placed in the operating room from the catheter at this time. She was given additional time for urine to accumulate in her bladder and she continued to be unable to urinate. A Bond catheter was placed at this time and patient was kept for monitoring overnight. Her pain was well controlled and she had minimal vaginal bleeding. She was ambulating and tolerating a regular diet. She was not passing flatus. In the morning of postoperative day #1 her Bond catheter was removed and she was able to urinate 400 mL of urine spontaneously and a post void bladder scan showed 18 mL of urine present. She was afebrile. She desired to be discharged home on the morning of POD #1. Her blood type is O+. She will follow-up in 2 weeks for routine postoperative appointment or earlier as needed. - Patient Instructions Diet: Regular Diet as Tolerated Activity: Apply Ice, As Tolerated, No Lifting Over 20 Pounds Activity, Other: Nothing in the vagina for 6 weeks Driving: Do Not Drive (While taking narcotic medications or having significant pain) Showering/Bathing: May Shower, No Tub Bathing/Swimming (For 2 weeks) Wound/Incision Care: Keep Operative Site/Wound Site Clean and Dry Notify Provider of: Fever, Increased Pain, Swelling and Redness, Drainage, Nausea and/or Vomiting Other/Special Instructions: Please contact your physician's office if you note any bleeding or pus coming from the abdominal incisions. Please contact your physician's office if you have heavy vaginal bleeding enough to soak a pad in less than an hour. - Discharge Plan *PRESCRIPTION DRUG MONITORING PROGRAM REVIEWED*: Yes *COPY OF PRESCRIPTION DRUG MONITORING REPORT IN PATIENT TATYANA: Yes Prescriptions/Med Rec: Acetaminophen/oxyCODONE [Percocet 325-5 MG] 1 - 2 each PO Q6H PRN #20 tab PRN Reason: Pain Bethanechol Chloride [Urecholine] 10 mg PO Q6H #20 tablet Docusate Sodium [Colace] 100 mg PO BID #60 capsule Ibuprofen 600 mg PO Q6H PRN #60 tablet PRN Reason: Pain Ondansetron [Zofran ODT] 4 mg PO Q6H PRN #30 tab.dis PRN Reason: Nausea/Vomiting Home Medications: Home Meds Escitalopram [Lexapro] 20 mg PO BEDTIME 04/19/19 [History] Spironolactone 50 mg PO BID 04/19/19 [History] Acetaminophen/oxyCODONE [Percocet 325-5 MG] 1 - 2 each PO Q6H PRN #20 tab [Rx] Docusate Sodium [Colace] 100 mg PO BID #60 capsule 04/20/19 [Rx] Ibuprofen 600 mg PO Q6H PRN #60 tablet 04/20/19 [Rx] Ondansetron [Zofran ODT] 4 mg PO Q6H PRN #30 tab.dis 04/20/19 [Rx] Bethanechol Chloride [Urecholine] 10 mg PO Q6H #20 tablet 04/21/19 [Rx] Patient Handouts: Docusate Sodium; Senna tablets or capsules, Acetaminophen; Oxycodone tablets, Ondansetron oral dissolving tablet, Laparoscopically Assisted Vaginal Hysterectomy, Care After, Ibuprofen tablets and capsules, Urethral Vaginal Sling, Care After Referrals: Geovanny Clements MD [Physician] - 05/06/19 2:15 pm (Follow-up in 2 weeks for routine postoperative appointment or earlier as needed.) - Discharge Summary/Plan Comment DC Time >30 min.: No - Patient Data Vitals - Most Recent: Last Vital Signs Temp 36.8 C 04/21/19 04:25 Pulse 76 04/21/19 04:25 Resp 15 04/21/19 04:25 BP 96/66 04/21/19 04:25 Pulse Ox 93 L 04/21/19 04:25 Weight - Most Recent: 57.606 kg I&O - Last 24 hours: Intake & Output 04/20/19 04/21/19 04/21/19 22:59 06:59 14:59 Intake Total 180 Output Total 2450 Balance 180 -2450 Lab Results - Last 24 hrs: Laboratory Results - last 24 hr 04/20/19 Range/Units 07:25 Blood Type O POSITIVE Gel Antibody Screen Negative Med Orders - Current: Current Medications Bethanechol Chloride (Urecholine) 10 mg PO Q6H DIAN Stop: 04/21/19 12:00 Last Admin: 04/21/19 04:23 Dose: 10 mg Ibuprofen (Motrin) 600 mg PO Q6H PRN PRN Reason: Pain (mild 1-3) Stop: 04/21/19 12:00 Last Admin: 04/21/19 00:33 Dose: 600 mg Ondansetron HCl (Zofran Odt) 4 mg PO Q6H PRN PRN Reason: Nausea/Vomiting Stop: 04/21/19 12:00 Last Admin: 04/20/19 17:22 Dose: 4 mg Oxycodone/Acetaminophen (Percocet 325-5 Mg) 1 tab PO Q6H PRN PRN Reason: Pain (moderate 4-6) Stop: 04/21/19 12:00 Oxycodone/Acetaminophen (Percocet 325-5 Mg) 2 tab PO Q6H PRN PRN Reason: Pain (severe 7-10) Stop: 04/21/19 12:00 Last Admin: 04/21/19 04:23 Dose: 2 tab Spironolactone (Aldactone) 50 mg PO BID DIAN Stop: 04/21/19 12:00 Last Admin: 04/20/19 21:24 Dose: 50 mg Discontinued Medications Bupivacaine HCl (Marcaine 0.5%) Confirm Administered Dose 30 ml .ROUTE .STK-MED ONE Stop: 04/20/19 07:29 Last Admin: 04/20/19 08:26 Dose: 7 ml Cefazolin Sodium (Ancef) Confirm Administered Dose 2 gm .ROUTE .STK-MED ONE Stop: 04/20/19 07:13 Dexamethasone (Dexamethasone) Confirm Administered Dose 20 mg .ROUTE .STK-MED ONE Stop: 04/20/19 07:14 Fentanyl (Sublimaze) Confirm Administered Dose 250 mcg .ROUTE .STK-MED ONE Stop: 04/20/19 07:13 Fentanyl (Sublimaze) 50 mcg IVPUSH Q5M PRN PRN Reason: Pain Stop: 04/20/19 23:00 Glycopyrrolate () Confirm Administered Dose 1 mg .ROUTE .STK-MED ONE Stop: 04/20/19 08:35 Hydromorphone HCl (Dilaudid) 0.5 mg IVPUSH Q10M PRN PRN Reason: Pain (severe 7-10) Stop: 04/20/19 23:00 Lactated Ringer's (Ringers, Lactated) 1,000 mls @ 125 mls/hr IV ASDIRECTED DIAN Stop: 04/20/19 23:00 Last Admin: 04/20/19 13:57 Dose: 125 mls/hr Lidocaine HCl (Xylocaine-Mpf 1%) Confirm Administered Dose 4 mls @ as directed .ROUTE .STK-MED ONE Stop: 04/20/19 07:13 Lactated Ringer's (Ringers, Lactated) Confirm Administered Dose 1,000 mls @ as directed .ROUTE .STK-MED ONE Stop: 04/20/19 07:13 Lidocaine HCl (Xylocaine-Mpf 1%) Confirm Administered Dose 4 mls @ as directed .ROUTE .STK-MED ONE Stop: 04/20/19 07:14 Ketorolac Tromethamine (Toradol) Confirm Administered Dose 30 mg .ROUTE .STK- MED ONE Stop: 04/20/19 07:14 Lidocaine/Epinephrine (Xylocaine 1% With Epinephrine 1:100,000) Confirm Administered Dose 20 ml .ROUTE .STK-MED ONE Stop: 04/20/19 07:29 Last Admin: 04/20/19 08:46 Dose: 5 ml Lidocaine/Sodium Bicarbonate (Buffered Lidocaine 1% In Ns 8.4%) 0.25 ml IDERM ONETIME PRN PRN Reason: Prior to IV Start Stop: 04/20/19 18:00 Last Admin: 04/20/19 07:27 Dose: 0.25 ml Midazolam HCl (Versed 1 Mg/Ml) Confirm Administered Dose 2 mg .ROUTE .STK-MED ONE Stop: 04/20/19 07:13 Ondansetron HCl (Zofran) Confirm Administered Dose 4 mg .ROUTE .STK-MED ONE Stop: 04/20/19 07:13 Ondansetron HCl (Zofran) 4 mg IVPUSH ONETIME PRN PRN Reason: Nausea/Vomiting Stop: 04/20/19 23:00 Oxycodone/Acetaminophen (Percocet 325-5 Mg) 1 - 2 tab PO Q6H PRN PRN Reason: Pain Last Admin: 04/20/19 12:24 Dose: 2 tab Propofol (Diprivan 20 Ml) Confirm Administered Dose 400 mg .ROUTE .STK-MED ONE Stop: 04/20/19 07:13 Rocuronium Manter (Zemuron) Confirm Administered Dose 100 mg .ROUTE .STK-MED ONE Stop: 04/20/19 07:14 Sodium Chloride (Saline Flush) 10 ml FLUSH ASDIRECTED PRN PRN Reason: Keep Vein Open Stop: 04/20/19 18:00 Sodium Chloride (Normal Saline) Confirm Administered Dose 50 ml .ROUTE .STK-MED ONE Stop: 04/20/19 07:29 Last Admin: 04/20/19 08:46 Dose: 15 ml
[2019-04-21] MEDS: Spironolactone 25 MG Tab PO SCH (09:23)
--- NOTE | 2019-04-21 09:28 | PCM48HPAN ---
Post Anesthesia Note - EVALUATION WITHIN 48HRS OF ANESTHETIC Vital Signs in Normal Range: Yes Patient Participated in Evaluation: Yes Respiratory Function Stable: Yes Airway Patent: Yes Cardiovascular Function Stable: Yes Hydration Status Stable: Yes Pain Control Satisfactory: Yes Nausea and Vomiting Control Satisfactory: Yes Mental Status Recovered: Yes Vital Signs: Last Vital Signs Temp 37.6 C 04/21/19 08:00 Pulse 60 04/21/19 08:00 Resp 18 04/21/19 08:00 BP 96/53 L 04/21/19 08:00 Pulse Ox 95 04/21/19 08:00
== END 2019-04-21 09:05 | disposition home or self-care (01) ==
LOC: JD.SDS 06:58 → JD.OB 18:18 → JD.SDS 04-21 09:05
PROVIDERS: ATTEND Obstetrics & Gynecology
DX: N80.0 Endometriosis of uterus (principal); N87.9 Dysplasia of cervix uteri, unspecified; N39.3 Stress incontinence (female) (male); K76.89 Other specified diseases of liver; F41.9 Anxiety disorder, unspecified; F17.210 Nicotine dependence, cigarettes, uncomplicated; Z90.79 Acquired absence of other genital organ(s); Z90.710 Acquired absence of both cervix and uterus; Z98.890 Other specified postprocedural states; Z79.899 Other long term (current) drug therapy
CPT/HCPCS: 36415; 51701; 51702; 51992; 58550; 81001; 81025; 86850; 86900; 86901; 87086; A9270; C1771; J0690; J1100; J1885; J2001; J2250; J2405; J2704; J3010; J3490; J7120; 00944

== ENCOUNTER 2021-04-25 23:11 | Emergency (ER) | payer BC, OTHER ==
[2021-04-25] MEDS ORDERED: Sodium Chloride 0.9% 1,000 ML IV SCH (23:45)
[2021-04-25 23:46] VITALS: BP 111/70; PULSE 100
[2021-04-25] MEDS ORDERED: Ondansetron 4 MG/2 ML SDV IVPUSH ONE (23:50)
[2021-04-25] MEDS ORDERED: Sodium Chloride 0.9% 10 ML Syringe FLUSH PRN (23:50)
[2021-04-26] MEDS ORDERED: HYDROmorphone 0.5 MG/0.5 ML Syringe IVPUSH ONE (00:08)
--- NOTE | 2021-04-26 00:11 | EDM.PDOC ---
ED HPI GENERAL MEDICAL PROBLEM - General Chief Complaint: Gastrointestinal Problem Stated Complaint: VOMITING Time Seen by Provider: 04/25/21 23:45 Source of Information: Reports: Patient, Other (Friend) History Limitations: Reports: No Limitations - History of Present Illness INITIAL COMMENTS - FREE TEXT/NARRATIVE: Ms. Hathaway is a very pleasant 48-year-old woman who now presents the ED stating that she had a headache yesterday and again today, then developed nausea, vomiting, abdominal pain, generalized malaise around 20:00 tonight, then watery diarrhea, lightheadedness, and feeling thirsty around 21:00. She states that she has also had a wet sounding cough and dyspnea since yesterday. She has had chills, although no fever. She is unable to describe the character of the abdominal pain, but states that it is constant, and that she has not identified any modifiers. No urinary symptoms. No prior similar symptoms. No recent bad tasting or smelling food. No recent antibiotics. No recent travel. No prior similar symptoms. The patient states that she took Benadryl around 20:30. At triage, the patient was found to be hemodynamically stable, afebrile, satur ating 97% on room air. She appears to be uncomfortable, but in no acute distress. Prior to yesterday, the patient denies having a recent fever, chills, sore throat, ear pain, nasal or sinus congestion, cough, dyspnea, chest pain, palpitations, nausea, vomiting, constipation, diarrhea, abdominal pain, urinary symptoms, recent weight gain or weight loss, recent bloody bowel movements or black bowel movements, recent joint aches, headaches, or rashes. The patient's PCP is JOANA Navarrete. Her dermatology midlevel is JOANA [facility], in [place]. She has received 2 COVID vaccinations plus a booster, as well as an influenza vaccination this season. Abdomen Pain Score (Numeric/FACES): 5 - Related Data Allergies Allergy/AdvReac Type Severity Reaction Status Date / Time No Known Allergies Allergy Verified 04/25/21 23:46 Home Meds: Home Meds Escitalopram [Lexapro] 20 mg PO BEDTIME 04/19/19 [History] Spironolactone 50 mg PO BID 04/19/19 [History] Acetaminophen/oxyCODONE [Percocet 325-5 MG] 1 - 2 each PO Q6H PRN #20 tab 04/20/19 [Rx] Docusate Sodium [Colace] 100 mg PO BID #60 capsule 04/20/19 [Rx] Ibuprofen 600 mg PO Q6H PRN #60 tablet 04/20/19 [Rx] Ondansetron [Zofran ODT] 4 mg PO Q6H PRN #30 tab.dis 04/20/19 [Rx] Bethanechol Chloride [Urecholine] 10 mg PO Q6H #20 tablet 04/21/19 [Rx] Ondansetron [Zofran ODT] 1 tab PO Q8H PRN #20 tab.dis 04/26/21 [Rx] Past Medical History HEENT History: Reports: Impaired Vision Psychiatric History: Reports: Anxiety Dermatologic History: Reports: Other (See Below) (Cystic acne) - Past Surgical History Female Surgical History: Reports: Breast Implant Social & Family History - Tobacco Use Tobacco Use Status *Q: Never Tobacco User - Caffeine Use Caffeine Use: Reports: Coffee, Soda, Tea - Alcohol Use Alcohol Use History: No - Recreational Drug Use Recreational Drug Use: No - Living Situation & Occupation Living situation: Reports: , with Family (Daughter) 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 ED EXAM, GENERAL - Physical Exam Exam: See Below Exam Limited By: No Limitations General Appearance: Alert, WD/WN, Mild Distress (appears uncomfortable) Eye Exam: Bilateral Eye: EOMI, Normal Inspection Ears: Normal External Exam, Hearing Grossly Normal Nose: Normal Inspection Throat/Mouth: Normal Inspection, Normal Lips, Normal Voice, No Airway Compromise Head: Atraumatic, Normocephalic Neck: Normal Inspection, Full Range of Motion Respiratory/Chest: No Respiratory Distress, Lungs Clear, Normal Breath Sounds, No Accessory Muscle Use. No: Decreased Breath Sounds, Crackles, Rhonchi, Wheezing, Prolonged Expiration Cardiovascular: Normal Peripheral Pulses, Regular Rate, Rhythm, No Edema, No Gallop, No JVD, No Murmur, No Rub Peripheral Pulses: 3+: Radial (L), Radial (R) GI/Abdominal: Normal Bowel Sounds, Soft, No Organomegaly, No Distention, No Abnormal Bruit, No Mass, Tender (generalized, non-focal) Back Exam: Normal Inspection, Full Range of Motion, NT Extremities: Normal Inspection, Normal Range of Motion, No Pedal Edema, Normal Capillary Refill Neurological: Alert, Oriented, Normal Cognition, No Motor/Sensory Deficits Psychiatric: Other (Angry affect) Skin Exam: Warm, Dry, Intact, Normal Color, No Rash Course - Vital Signs Last Recorded V/S: Last Vital Signs Temp 36.2 C 04/25/21 23:40 Pulse 100 04/25/21 23:40 Resp 20 04/26/21 02:45 BP 111/70 04/26/21 02:45 Pulse Ox 95 04/26/21 02:45 - Orders/Labs/Meds Orders: Active Orders 24 hr Category Date Time Status Peripheral IV Insertion Adult [OM.PC] Stat Oth 04/25/21 23:52 Ordered Labs: Laboratory Tests 04/26/21 04/26/21 04/26/21 Range/Units 00:19 00:19 00:19 WBC 6.70 (3.98-10.04) K/mm3 RBC 4.65 (3.98-5.22) M/mm3 Hgb 14.1 D (11.2-15.7) gm/dl Hct 43.0 (34.1-44.9) % MCV 92.5 (79.4-94.8) fl MCH 30.3 (25.6-32.2) pg MCHC 32.8 (32.2-35.5) g/dl RDW Std Deviation 42.8 (36.4-46.3) fL Plt Count 198 (182-369) K/mm3 MPV 12.3 (9.4-12.3) fl Neut % (Auto) 88.2 H (34.0-71.1) % Lymph % (Auto) 4.5 L (19.3-51.7) % Sp[place]ding % (Auto) 6.4 (4.7-12.5) % Eos % (Auto) 0.7 (0.7-5.8) Baso % (Auto) 0.1 (0.1-1.2) % Neut # (Auto) 5.90 (1.56-6.13) K/mm3 Lymph # (Auto) 0.30 L (1.18-3.74) K/mm3 [place] # (Auto) 0.43 H (0.24-0.36) K/mm3 Eos # (Auto) 0.05 (0.04-0.36) K/mm3 Baso # (Auto) 0.01 (0.01-0.08) K/mm3 Sodium 141 (136-145) mEq/L Potassium 4.0 (3.5-5.1) mEq/L Chloride 102 (98-107) mEq/L Carbon Dioxide 30 (21-32) mEq/L Anion Gap 13.0 (5-15) BUN 22 H (7-18) mg/dL Creatinine 0.9 (0.55-1.02) mg/dL Est Cr Clr Drug Dosing 80.96 mL/min Estimated GFR (MDRD) > 60 (>60) mL/min BUN/Creatinine Ratio 24.4 H (14-18) Glucose 131 H (70-99) mg/dL Calcium 8.9 (8.5-10.1) mg/dL Magnesium 1.8 (1.8-2.4) mg/dL Total Bilirubin 0.3 (0.2-1.0) mg/dL AST 16 (15-37) U/L ALT 30 (14-59) U/L Alkaline Phosphatase 56 (46-116) U/L C-Reactive Protein <0.2 (<1.0) mg/dL Total Protein 6.9 (6.4-8.2) g/dl Albumin 4.1 (3.4-5.0) g/dl Globulin 2.8 gm/dL Albumin/Globulin Ratio 1.5 (1-2) Lipase 56 L (73-393) U/L HCG, Quant < 1.0 mIU/mL Influenza Type A RNA Negative (NEGATIVE) Influenza Type B RNA Negative (NEGATIVE) SARS-CoV-2 RNA (BAYRON) Negative (NEGATIVE) Meds: Medications Discontinued Medications Generic Name Dose Route Start Last Admin Trade Name Freq PRN Reason Stop Dose Admin Hydromorphone HCl 0.5 mg 04/26/21 00:08 04/26/21 00:27 Hydromorphone 0.5 Mg/0.5 Ml Syringe IVPUSH 04/26/21 00:09 0.5 mg ONETIME ONE Administration Sodium Chloride 1,000 mls @ 999 mls/hr 04/25/21 23:45 04/26/21 00:17 Normal Saline IV 04/26/21 00:44 999 mls/hr Q1H DIAN Administration Ondansetron HCl 4 mg 04/25/21 23:50 04/26/21 00:14 Ondansetron 4 Mg/2 Ml Sdv IVPUSH 04/25/21 23:51 4 mg ONETIME ONE Administration Ondansetron HCl 4 mg 04/26/21 01:27 04/26/21 01:48 Ondansetron 4 Mg/2 Ml Sdv IVPUSH 04/26/21 01:28 4 mg ONETIME ONE Administration Sodium Chloride 10 ml 04/25/21 23:50 04/26/21 00:18 Sodium Chloride 0.9% 10 Ml Syringe FLUSH 10 ml ASDIRECTED PRN Administration Keep Vein Open - Re-Assessments/Exams Free Text/Narrative Re-Assessment/Exam: 04/26/21 00:07 A CBC, CMP, magnesium level, lipase level, CRP, and quantitative hCG were ordered at triage. I have added a swab for the SARS-CoV-2 virus, and a chest x- ray. In the meantime, some IV fluid and IV Zofran were ordered at triage. I have added some IV Dilaudid, in order to see if we can improve her abdominal pain but only a small amount, as it may make her nausea and vomiting worse. If she tolerates it, we can give some more later. I gave her some ice chips, per her request. 04/26/21 02:03 Two-view chest radiograph appears to be grossly normal. The cardiac silhouette is within normal limits. No pulmonary vascular congestion. No pleural effusions. No focal infiltrate. No pneumothorax. Formal read per the Radiologist pending. The patient's CBC is unremarkable. Her CMP is remarkable for a BUN slightly elevated at 22 with a Cr normal at 0.9, and the remainder of her CMP being unremarkable. Her magnesium level is within normal limits at 1.8. Her lipase level is within normal limits at 56. Her CRP is undetectably low. Her quantitative hCG is undetectably low. Her swab for the SARS-CoV-2 virus and influenza A + B viruses is negative. 04/26/21 02:07 Test results discussed with the patient. She states that she is feeling much better. She is likely suffering from viral gastroenteritis. I will discharge her home with a prescription for Zofran, and recommend that she stay adequately hydrated and eat a bland diet if she is hungry. Departure - Departure Time of Disposition: 02:07 Disposition: Home, Self-Care 01 Condition: Good Clinical Impression: Viral gastroenteritis - Discharge Information *PRESCRIPTION DRUG MONITORING PROGRAM REVIEWED*: Not Applicable *COPY OF PRESCRIPTION DRUG MONITORING REPORT IN PATIENT TATYANA: Not Applicable Prescriptions: Ondansetron [Zofran ODT] 1 tab PO Q8H PRN #20 tab.dis PRN Reason: Nausea/Vomiting Instructions: Viral Gastroenteritis, Adult, [id number] Referrals: Iram Landry PA-C [Primary Care Provider] - Brock Lucero PA-C [Ordering Only Provider] - Forms: ED Department Discharge Additional Instructions: You were seen in the emergency room after developing nausea, diarrhea, abdominal pain, malaise, headache, lightheadedness, cough, shortness of breath, and chills. Work-up in the ER included numerous blood tests, a swab for the SARS-CoV-2 virus and influenza A + B viruses, and a chest x-ray. Your entire work-up was unremarkable. Based on your history, physical exam, and ER tests, you are most likely suffering from a viral gastroenteritis. Unfortunately, there are no medicines to get rid of viral gastroenteritis - it will have to run its course. We recommend you stay adequately hydrated. Water is okay, but Gatorade or Pedialyte are preferable. We recommend that you avoid juice and milk, as they may make your diarrhea worse. If you are hungry, we recommend a bland diet, such as rice or oatmeal. Chicken noodle soup with saltine crackers is an excellent choice. You may take [id number] acetaminophen or ibuprofen as needed for discomfort. A prescription for the anti-nausea medicine Zofran ODT has been sent to [facility], located in the [facility] across the [address] from the hospital. You may dissolve 1 tablet of Zofran ODT on your tongue up to every 8 hours, as needed for nausea/vomiting. If any other problems, please do not hesitate to return to the ER. - My Orders Last 24 Hours: My Active Orders 04/25/21 23:52 Peripheral IV Insertion Adult [OM.PC] Stat - Assessment/Plan Last 24 Hours: My Active Orders 04/25/21 23:52 Peripheral IV Insertion Adult [OM.PC] Stat
[2021-04-26] MEDS ORDERED: Ondansetron 4 MG/2 ML SDV IVPUSH ONE (01:27)
[2021-04-26 01:38] LABS: CORONAVIRUS COVID-19 NAA NEGATIVE (NEGATIVE)
--- NOTE | 2021-04-26 07:39 | CR ---
Chest: PA and lateral views of the chest are obtained. Comparison: Prior chest x-ray on 02/01/09. Heart size and mediastinum are within normal limits. Lungs are clear in no acute parenchymal change. Bony structures show nothing acute. Impression: 1. Nothing acute is seen on 2-view chest x-ray. Diagnostic code #1
== END 2021-04-26 02:48 | disposition home or self-care (01) ==
LOC: JD.ED 23:11
DX: A08.4 Viral intestinal infection, unspecified (principal); Z20.822 Contact with and (suspected) exposure to COVID-19
CPT/HCPCS: 0240U; 36415; 71046; 80053; 83690; 83735; 84702; 85025; 86140; 96374; 96375; 96376; 99284; J1170; J2405; J7030

== ENCOUNTER 2022-11-17 08:19 | Emergency (ER) | payer BC, OTHER ==
[2022-11-17] MEDS ORDERED: Ibuprofen 600 MG Tab PO ONE (09:20)
[2022-11-17] MEDS ORDERED: Acetaminophen 325 MG Tab PO ONE (09:20)
[2022-11-17 09:44] VITALS: BP 110/67; PULSE 66
== END 2022-11-17 09:43 | disposition home or self-care (01) ==
LOC: JD.ED 08:19
DX: S92.352A Displaced fracture of fifth metatarsal bone, left foot, initial encounter for closed fracture (principal); X50.1XXA Overexertion from prolonged static or awkward postures, initial encounter
CPT/HCPCS: 73630; 99283; A9270